=== PATIENT | female | born 1990 | race American Indian/Alaskan Native ===

== ENCOUNTER 2020-11-13 07:28 | Emergency (ER) | payer MEDICAID ==
[2020-11-13 07:45] VITALS: BP 119/84
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
[2020-11-13 08:51] LABS: HCG Qualitative,Urine Negative (Negative)
[2020-11-13] MEDS ORDERED: KETOROLAC 30 MG/1 ML INJ IM ONE (09:10)
--- NOTE | 2020-11-13 09:10 | XRay Report ---
CHEST 2 VIEWS INDICATION: upper back/upper chest pain. COMPARISON: None FINDINGS: Support devices: None. Heart: Within normal limits. Lungs/pleura: No acute air space or interstitial disease. No pneumothorax. Additional findings: None. IMPRESSION: Normal chest x-ray Signer Name: Moses Menjivar Jr, MD Signed: 11/13/2020 9:05 AM Workstation Name: [id number]
--- NOTE | 2020-11-13 11:25 | Electrocardiograph Report ---
[facility] Test Date: 2020-11-13 Test Time: 07:37:39 Pat Name: CASSI EGAN Department: Room: Gender: F [employer] Teacher: ROLF : 1990 Requested By: GISELLA DODGE Order Number: [id number] Reading MD: Acosta Britton Measurements Intervals [place] Rate: 84 P: 37 [place]: 176 QRS: 68 QRSD: 74 T: 55 QT: 335 QTc: 396 Interpretive Statements Sinus rhythm Low voltage, precordial leads No previous ECG available for comparison Electronically Signed On 11-13-2020 8:25:10 PDT by Acosta Britton
== END 2020-11-13 09:43 | disposition home or self-care (01) ==
LOC: ED 07:28
DX: S29.012A Strain of muscle and tendon of back wall of thorax, initial encounter (principal); R07.89 Other chest pain; Z98.890 Other specified postprocedural states; Z79.899 Other long term (current) drug therapy; X50.0XXA Overexertion from strenuous movement or load, initial encounter; Y93.89 Activity, other specified; Y92.89 Other specified places as the place of occurrence of the external cause; Y99.8 Other external cause status
CPT/HCPCS: 71046; 81025; 93005; 96372; 99283; J1885

== ENCOUNTER 2021-08-10 06:05 | Emergency (ER) | payer MEDICAID ==
[2021-08-10 07:28] VITALS: BP 105/55
--- NOTE | 2021-08-10 07:43 | Emergency Department Report ---
ED Back Pain/Injury HPI - General Chief Complaint: Back Pain/Injury Stated Complaint: BACK PAIN Time Seen by Provider: 08/10/21 07:25 Source: patient Limitations: No Limitations - History of Present Illness Initial Comments: Patient presents with upper back pain. She believes this is related to lifting. She works in a warehouse and lifts boxes. Pain is been present for couple of days now. She states it is a tightness across the upper back. It is worse when she lifts her arm and moves her arm. Is worse when she twists and turns. She states that she is taken Tylenol and the pain has gotten somewhat better. She came here for evaluation and treatment today. There is no direct trauma. Has no chest pain or shortness of breath. There is no vomiting or diarrhea. She has no lower back pain. Pain does not radiate. There is no paresthesias in the extremities. She has had no weakness in the extremities. - Related Data Previous Rx's Medication Instructions Recorded Last Taken Type Naproxen [EC-Naproxen] 500 mg PO BID #20 tablet. 08/10/21 Unknown Rx methOCARBAMOL [Robaxin TAB] 500 mg PO Q6H #20 tablet 08/10/21 Unknown Rx Allergies Allergy/AdvReac Type Severity Reaction Status Date / Time No Known Allergies Allergy Verified 11/13/20 07:32 ED Review of Systems ROS: Stated complaint: BACK PAIN Other details as noted in HPI Comment: All other systems reviewed and negative Constitutional: denies: fever Eyes: denies: vision change ENT: denies: throat pain Respiratory: denies: cough Cardiovascular: denies: chest pain Endocrine: denies: unexplained weight loss Gastrointestinal: denies: abdominal pain Genitourinary: denies: dysuria Musculoskeletal: as per HPI Skin: denies: rash Neurological: denies: headache Hematological/Lymphatic: denies: easy bruising ED Past Medical Hx - Past Medical History Previous Medical History?: No - Surgical History Additional Surgical History: neck sx due to broken jaw 03/2020 - Family History Family history: no significant - Social History Smoking Status: Never Smoker Substance Use Type: Alcohol - Medications Home Medications: Home Medications Medication Instructions Recorded Confirmed Last Taken Type Naproxen [EC-Naproxen] 500 mg PO BID #20 tablet. 08/10/21 Unknown Rx methOCARBAMOL [Robaxin TAB] 500 mg PO Q6H #20 tablet 08/10/21 Unknown Rx ED Physical Exam - General Limitations: No Limitations, Other ( Pulse ox noted and normal) General appearance: alert, in no apparent distress - Head Head exam: Present: atraumatic, normocephalic - Eye Eye exam: Present: normal appearance, EOMI - ENT ENT exam: Present: normal orophraynx, normal external ear exam - Neck Neck exam: Present: normal inspection. Absent: meningismus - Respiratory Respiratory exam: Present: normal lung sounds bilaterally. Absent: respiratory distress - Cardiovascular Cardiovascular Exam: Present: regular rate, normal rhythm - GI/Abdominal GI/Abdominal exam: Present: soft. Absent: tenderness - Extremities Exam Extremities exam: Present: normal capillary refill - Back Exam Back exam: Present: CVA tenderness (R), paraspinal tenderness ( thoracic). Absent: CVA tenderness (L), vertebral tenderness - Neurological Exam Neurological exam: Present: alert, oriented X3, CN II-XII intact, normal gait. Absent: motor sensory deficit - Psychiatric Psychiatric exam: Present: normal affect, normal mood - Skin Skin exam: Present: warm, dry ED Course Vital Signs 08/10/21 07:26 Temperature 98.5 F Pulse Rate 72 Respiratory 16 Rate Blood Pressure 105/55 [Right] O2 Sat by Pulse 98 Oximetry - Reevaluation(s) Reevaluation #1: 08/10/21 07:56 patient was discharged. Old records reviewed. ED Medical Decision Making - Medical Decision Making Patient presents with nontraumatic upper back pain. This is consistent with muscle strain. She certainly does not have symptoms suggestive of pneumonia or pneumothorax. She does not have a pulse deficit that would suggest aortic dissection. Pain is not pleuritic. I do not believe this represents pulmonary embolism. I am not concerned for traumatic injury or fracture. She was treated symptomatically and referred for follow-up. Critical Care Time: No Critical care attestation.: If time is entered above; I have spent that time in minutes in the direct care of this critically ill patient, excluding procedure time. ED Disposition Clinical Impression: Upper back strain Qualifiers: Encounter type: initial encounter Qualified Code(s): S29.012A - Strain of muscle and tendon of back wall of thorax, initial encounter Disposition: HOME / SELF CARE / HOMELESS Is pt being admited?: No Condition: Stable Instructions: How to Use Cold Therapy, [id number], Muscle Strain, [id number] Additional Instructions: APPLY ICE. RETURN FOR PROBLEMS. SEE YOUR DOCTOR FOR RECHECK. Prescriptions: Naproxen [EC-Naproxen] 500 mg PO BID #20 tablet. methOCARBAMOL [Robaxin TAB] 500 mg PO Q6H #20 tablet Referrals: PRIMARY CARE, [Primary Care Provider] - 3-5 Days Forms: Work/School Release Form(ED)
== END 2021-08-10 07:57 | disposition home or self-care (01) ==
LOC: ED 06:05
DX: S29.012A Strain of muscle and tendon of back wall of thorax, initial encounter (principal); F10.20 Alcohol dependence, uncomplicated; X58.XXXA Exposure to other specified factors, initial encounter; Y93.89 Activity, other specified; Y92.89 Other specified places as the place of occurrence of the external cause; Y99.8 Other external cause status
CPT/HCPCS: 99282